=== PATIENT | female | born 1995 | race Two or more races ===

== ENCOUNTER 2018-07-29 21:18 | Emergency (ER) | payer SELFPAY ==
[~2018-07-29] VITALS: Ht 172.7 cm; Wt 142.4 kg
[~2018-07-29 21:18] MED LIST: DOXY100C2 PO; MONT10TA49 PO; NAPR-683 PO; PRED20TA PO
[2018-07-29 22:18] VITALS: BP 176/82
--- NOTE | 2018-07-29 23:29 | PHYS DOC ---
Past Medical History Past Medical History: Asthma Additional Past Medical Histor: seasonal allergies Past Surgical History: No Surgical History Alcohol Use: None Drug Use: None Adult General Chief Complaint Chief Complaint: TOE PROBLEM HPI HPI 23-year-old female presents to ER via POV for complaints of left small toe injury. She reports around 5 PM she stubbed her toe and since has had pain. She denies any other injury. She reports she put sports cream on her toe and an ice pack with minimal relief in symptoms. She denies any [id number] pain medications. Patient had steady unassisted gait from triage to room see per RN. Review of Systems Review of Systems Constitutional: Denies fever or chills [] Eyes: Denies change in visual acuity, redness, or eye pain [] HENT: Denies nasal congestion or sore throat [] Respiratory: Denies cough or shortness of breath [] Cardiovascular: No additional information not addressed in HPI [] GI: Denies abdominal pain, nausea, vomiting, bloody stools or diarrhea [] : Denies dysuria or hematuria [] Musculoskeletal: Denies back pain or joint pain [] Integument: Denies rash or skin lesions [] Neurologic: Denies headache, focal weakness or sensory changes [] Endocrine: Denies polyuria or polydipsia [] All other systems were reviewed and found to be within normal limits, except as documented in this note. Current Medications Current Medications Current Medications Medications (Trade) Dose Ordered Sig/[facility] Start Time Stop Time Status Last Admin Dose Admin Ibuprofen (Motrin) 600 mg 1X ONCE 07/29/18 23:45 07/29/18 23:46 DC Allergies Allergies Allergies Coded Allergies Type Severity Reaction Last Updated Verified No Known Drug Allergies 07/29/13 No Physical Exam Physical Exam Constitutional: Well developed, well nourished, no acute distress, non-toxic appearance. [] HENT: Normocephalic, atraumatic, bilateral external ears normal, oropharynx moist, no oral exudates, nose normal. [] Eyes: PERRLA, EOMI, conjunctiva normal, no discharge. [] Neck: Normal range of motion, no tenderness, supple, no stridor. [] Cardiovascular:Heart rate regular rhythm, no murmur [] Lungs & Thorax: Bilateral breath sounds clear to auscultation [] Abdomen: Bowel sounds normal, soft, no tenderness, no masses, no pulsatile masses. [] Skin: Warm, dry, no erythema, no rash. [] Back: No tenderness, no CVA tenderness. [] Extremities: No tenderness, no cyanosis, no clubbing, ROM intact, no edema. [] Neurologic: Alert and oriented X 3, normal motor function, normal sensory function, no focal deficits noted. [] Psychologic: Affect normal, judgement normal, mood normal. [] Current Patient Data Vital Signs Vital Signs Date Time Temp Pulse Resp B/P (MAP) Pulse Ox O2 Delivery O2 Flow Rate FiO2 07/29/18 22:18 98.8 89 16 176/82 (113) 97 Room Air 98.8 EKG EKG [] Radiology/Procedures Radiology/Procedures [] Course & Med Decision Making Course & Med Decision Making Pertinent Imaging studies reviewed. (See chart for details) 2355: Pt was evaluated in the ER for complaints of left small toe injury which occurred earlier today. Patient's x-ray was reviewed by Dr. Adams with nondisplaced proximal fifth phalanx fracture. This was discussed with patient along with plans for jayjay tape and Ortho shoe to be provided. Patient has been ambulatory without assistive devices. Patient advised on if symptoms persist she can follow up with orthopedics for reevaluation and further care. Patient remains PMS intact in left lower extremity. Education provided on signs and symptoms to return to ER. Discharge instructions were discussed. Dragon Disclaimer Dragon Disclaimer This electronic medical record was generated, in whole or in part, using a voice recognition dictation system. Departure Departure Impression: Primary Impression: Toe fracture, left Disposition: 01 HOME, SELF-CARE Condition: STABLE Referrals: NO PCP (PCP) LOU FERNANDEZ II, MD Patient Instructions: Jayjay Taping of Toes, Hard-Soled Shoe, Toe Fracture Additional Instructions: Tylenol and/or ibuprofen as needed for pain as directed on container. Ice pack to affected area every 3-4 hours for 20-30 minutes at a time. Elevate your foot as much as possible to improve swelling and pain. If symptoms persist follow-up with your primary care physician and or an orthopedic doctor for reevaluation and further care. JILLIAN ROMERO APRN Jul 29, 2018 23:29
[2018-07-29] MEDS ORDERED: IBUPROFEN 200 MG TABLET. PO ONE (23:45)
--- NOTE | 2018-07-30 05:26 | RAD ---
TOES LEFT 07/29/2018 11:22 PM INDICATION: Left small toe injury COMPARISON: None available. TECHNIQUE: 3 views of the fifth digit are provided of the left foot. FINDINGS: Minimally displaced fracture of the base of the proximal phalanx of the fifth digit without intra-articular extension. Bone mineralization is within normal limits. Joint spaces are maintained. Mild regional soft tissue swelling. There is no soft tissue gas or osseous erosion. IMPRESSION: Transversely oriented, minimally displaced fracture involving the base of the proximal phalanx of the fifth digit without intra-articular extension. Electronically signed by: Samantha Reyes MD (07/30/2018 5:23 AM) [facility]
== END 2018-07-30 00:34 | disposition home or self-care (01) ==
LOC: ER 21:18
DX: S92.512A Displaced fracture of proximal phalanx of left lesser toe(s), initial encounter for closed fracture (principal); J45.909 Unspecified asthma, uncomplicated; W22.09XA Striking against other stationary object, initial encounter; Y93.89 Activity, other specified; Y92.89 Other specified places as the place of occurrence of the external cause; Y99.8 Other external cause status
CPT/HCPCS: 73660; 99284

== ENCOUNTER 2020-02-11 14:57 | Emergency (ER) | payer BC ==
[~2020-02-11] VITALS: Ht 172.7 cm; Wt 145.4 kg
[2020-02-11] MEDS ORDERED: DEXAMETHASONE 4 MG TABLET PO STA (18:28)
[2020-02-11 18:30] VITALS: BP 145/78
[2020-02-11] MEDS ORDERED: AZIT250T PO (18:30)
--- NOTE | 2020-02-11 18:34 | PHYS DOC ---
Past Medical History Past Medical History: Asthma Additional Past Medical Histor: seasonal allergies Past Surgical History: No Surgical History Smoking Status: Never Smoker Alcohol Use: None Drug Use: None General Adult EDM: Chief Complaint: ASTHMA HPI: HPI: Patient is a 25 year old female who is currently on no prescription medications does have a history of asthma presents with a chief complaint headache muscle aches and shortness of breath. Symptoms have been ongoing x6 days. Patient states she has been exposed to someone who has tested positive for Covid. On exam patient is in no acute distress she is not hypoxic with oxygen saturations 99 to 100% on room air. Based upon history and present illness and physical exam concern for Covid patient is a PUI. Patient is not hypoxic--Covid test will be performed patient advised results 48 to 72 hours. We will give patient a dose of Decadron and patient will be prescribed Zithromax. Patient advised to take Tylenol and ibuprofen as needed for pain or fever. Patient advised to isolate for 10 days. Review of Systems: Review of Systems: Constitutional: Positive fever or chills. [] Eyes: Denies change in visual acuity. [] HENT: Denies nasal congestion or sore throat. [] Respiratory: Positive cough or shortness of breath. [] Cardiovascular: Denies chest pain or edema. [] GI: Denies abdominal pain, nausea, vomiting, bloody stools or diarrhea. [] : Denies dysuria. [] Musculoskeletal: Denies back pain or joint pain. [Positive myalgias] Integument: Denies rash. [] Neurologic: Denies, focal weakness or sensory changes. [Positive headache] Endocrine: Denies polyuria or polydipsia. [] Lymphatic: Denies swollen glands. [] Psychiatric: Denies depression or anxiety. [] Heart Score: Risk Factors: Risk Factors: DM, Current or recent (<one month) smoker, HTN, HLP, family hist ory of CAD, obesity. Risk Scores: Score 0 - 3: 2.5% MACE over next 6 weeks - Discharge Home Score 4 - 6: 20.3% MACE over next 6 weeks - Admit for Clinical Observation Score 7 - 10: 72.7% MACE over next 6 weeks - Early Invasive Strategies Current Medications: Current Medications Medications (Trade) Dose Ordered Sig/Jasbir Start Time Stop Time Status Last Admin Dose Admin Dexamethasone (Decadron) 10 mg 1X STAT 1/5/21 18:28 02/11/20 18:30 DC Allergies: Allergies: Allergies Coded Allergies Type Severity Reaction Last Updated Verified No Known Drug Allergies 07/29/13 No Physical Exam: PE: Constitutional: Well developed, well nourished, no acute distress, non-toxic appearance. [] HENT: Normocephalic, atraumatic, bilateral external ears normal, oropharynx moist, no oral exudates, nose normal. [] Eyes: PERRLA, EOMI, conjunctiva normal, no discharge. [] Neck: Normal range of motion, no tenderness, supple, no stridor. [] Cardiovascular:Heart rate regular rhythm, no murmur [] Lungs & Thorax: Bilateral breath sounds clear to auscultation [] Abdomen: Bowel sounds normal, soft, no tenderness, no masses, no pulsatile masses. [] Skin: Warm, dry, no erythema, no rash. [] Back: No tenderness, no CVA tenderness. [] Extremities: No tenderness, no cyanosis, no clubbing, ROM intact, no edema. [] Neurologic: Alert and oriented X 3, normal motor function, normal sensory function, no focal deficits noted. [] Psychologic: Affect normal, judgement normal, mood normal. [] Current Patient Data: Vital Signs: Vital Signs Date Time Temp Pulse Resp B/P (MAP) Pulse Ox O2 Delivery O2 Flow Rate FiO2 02/11/20 18:18 98.2 90 20 150/88 (108) 97 Room Air 98.2 EKG: EKG: [] Radiology/Procedures: Radiology/Procedures: [] Course & Med Decision Making: Course & Med Decision Making Pertinent Labs and Imaging studies reviewed. (See chart for details) [] Dragon Disclaimer: Dragon Disclaimer: This electronic medical record was generated, in whole or in part, using a voice recognition dictation system. Departure Departure Impression: Primary Impression: Person under investigation for COVID-19 Additional Impression: Asthma Disposition: 01 DC HOME SELF CARE/HOMELESS Condition: STABLE Patient Instructions: Asthma, Adult, Viral Syndrome Additional Instructions: You have been tested for or diagnosed with COVID-19. It is an infection caused by a new type of coronavirus. COVID-19 will cause cold-like or mild flu symptoms in most. It can cause more severe symptoms like problems breathing in some. There is no treatment for COVID-19. The body will clear the infection over time. Self-care will help to ease discomfort. Steps to Take: Self-Care Rest as needed. Healthy habits may help you feel better. Steps include: Choose healthy foods including fruits and vegetables. Drink water throughout the day. Get plenty of sleep each night. If you smoke, try to quit. It may ease breathing. Avoid alcohol. Keep Others Healthy The virus can spread to others. Droplets are released every time you sneeze or cough. The droplets can get into the mouth, nose, or eyes of people near you and lead to infection. To lower the chances of spreading COVID-19 to others: Stay at home until your doctor has said it is safe to leave. If you tested positive this will mean staying isolated until both of the following are true: At least 7 days have passed since the start of illness. You are free of fever for at least 72 hours without the use of medicine. During this time: - Avoid public areas, events, or transportation. Do not return to work or [facility] until your doctor has said it is safe to do so. - Call ahead if you need to go to a medical center. Let them know you may have COVID-19. It will help them guide you where to go. They may also ask you to wear a facemask when you come to the office. - If you call for emergency medical services, let them know you may have COVID- 19. While at home: - Try to avoid close contact with others. Stay about 6 feet away. - If possible, spend most of your time in a separate room from others. - Use a face mask if you will be in close contact with others such as sharing a room or vehicle. - Have someone wipe down common surfaces in the home. Use household pizza hut assistant every day on areas like doorknobs, counters, or sinks. - Cough or sneeze into a tissue. Throw the tissue away right after use. If a tissue is not available, cough or sneeze into your elbow. - Wash your hands often. Wash them after sneezing or coughing. Use soap and water and wash for at least 20 seconds. Alcohol based hand cleaner furniture can be used if soap and water is not available. - Do not prepare food for others. Avoid sharing personal items like forks, spoons, or toothbrushes. - Avoid close contact with pets while you are sick. There is no evidence of the virus passing to pets. This is a safety step until more is known about this virus. Isolation can be frustrating. Social interaction can help. Keep in touch with friends and family through phone and tech options. You can still interact with others in your home, just keep a safe distance of about 6 feet. Follow-up: Your doctors office will check in with you to see if there are any changes in your health. You may be asked to keep track of symptoms to share with them. They will also let you know when you are clear to be in public again. Problems to Look Out For: Contact your doctor if your recovery is not going as you expect. Get emergency care if you have problems such as: - Trouble breathing - Nonstop chest pain or pressure - Changes in awareness, confusion, or problems waking - Lips or face have bluish color - Worsening of symptoms If you think you have an emergency, call for emergency medical services right away. As taken from [facility] Script[facility] Azithromycin (ZITHROMAX) 250 Mg Tablet 1 PKG PO UD, #6 TAB Prov: HOLLY DURHAM I DO 02/11/20 HOLLY DURHAM I DO Feb 11, 2020 18:34
--- NOTE | 2020-02-13 16:24 | NUR ---
IP: Informed pt of negative COVID test. Pt verbalized understanding.
== END 2020-02-11 18:50 | disposition home or self-care (01) ==
LOC: ER 14:57
DX: J45.909 Unspecified asthma, uncomplicated (principal); Z20.828 Contact with and (suspected) exposure to other viral communicable diseases
CPT/HCPCS: 99283; C9803; U0003

== ENCOUNTER → 2020-09-21 | Emergency (ER) | payer BC ==
[~2020-09-21] VITALS: Ht 175.3 cm; Wt 136.0 kg
[~2020-09-21] MED LIST changes: +AZIT250T PO; +DEXAMETHASONE 4 MG TABLET PO ONE; -DOXY100C2 PO; +DOXY100C3 PO
--- NOTE | 2020-09-21 06:32 | PHYS DOC ---
Past Medical History Past Medical History: Asthma Additional Past Medical Histor: seasonal allergies Past Surgical History: No Surgical History Smoking Status: Never Smoker Alcohol Use: None Drug Use: None General Adult EDM: Chief Complaint: SORE THROAT Problems: (1) Sore throat HPI: HPI: 25-year-old female with no past medical history reported presents the emergency department complaining of sore throat intermittently for the past 2 weeks. She denies any swollen nodes, fever, throat swelling, inability to eat or drink, neck pain, change in voice, shortness of breath, chest pain, abdominal pain, further pain anywhere else. She had a Covid test recently and was negative, she has been fully vaccinated. Review of Systems: Review of Systems: Constitutional: Denies fever or chills. HENT: Denies congestion or sinus pain. Respiratory: Denies cough or shortness of breath. Cardiovascular: Denies chest pain or edema. GI: Denies abdominal pain, nausea. : Denies change in urination, dysuria. Musculoskeletal: Denies extremity pain, or trauma. Skin: Denies rash, skin change. Neurologic: Denies headache, focal weakness. Psychiatric: Denies depression or anxiety. All other systems reviewed as negative except for what was mentioned in the HPI. Heart Score: C/O Chest Pain: No Current Medications: Current Medications Medications (Trade) Dose Ordered Sig/Jas[facility] Start Time Stop Time Status Last Admin Dose Admin Dexamethasone (Decadron) 10 mg 1X ONCE 09/21/20 06:30 09/21/20 06:31 UNV Allergies: Allergies: Allergies Coded Allergies Type Severity Reaction Last Updated Verified diphenhydramine Allergy Intermediate rash/hives 02/11/20 Yes Physical Exam: PE: Constitutional: No acute distress, non-toxic appearance. HENT: Mild pharyngeal erythema without exudates, uvula midline, floor the mouth soft. No sinus tenderness Eyes: PERRLA, EOMI, conjunctiva normal, no discharge. Neck: Normal range of motion, supple, no stridor. Cardiovascular: 2+ radial pulses Lungs & Thorax: No respiratory distress, symmetrical expansion. Bilateral breath sounds clear to auscultation Skin: Warm, dry. Extremities: No tenderness, no cyanosis. Lymphadenopathy: No cervical lymphadenopathy, no tender nodes. Neurologic: Alert and oriented X 3, normal motor function, normal sensory function, no focal deficits noted. Non ataxic gait. GCS 15. Psychologic: Affect normal, judgment normal, mood normal. Current Patient Data: Vital Signs: Vital Signs Date Time Temp Pulse Resp B/P (MAP) Pulse Ox O2 Delivery O2 Flow Rate FiO2 09/21/20 06:10 98.2 81 20 158/96 (100) 100 Room Air 98.2 Course & Med Decision Making: Course & Med Decision Making Centor criteria of 1, no further testing is objectively indicated. Patient with benign exam, given Decadron for symptomatic relief. Patient has no evidence of acute end organ damage from hypertension. I counseled the patient on their high blood pressure and the need to follow-up in the clinic to get this addressed. Departure Departure Impression: Primary Impression: Pharyngitis Additional Impression: Elevated blood pressure reading Disposition: HOME / SELF CARE / HOMELESS Condition: GOOD Referrals: NO PCP (PCP) Patient Instructions: Viral Pharyngitis Additional Instructions: You were seen in the Emergency Department for pharyngitis. You may use [id number] sore throat spray or gargle with warm salt water to help your symptoms. This is most likely caused by a virus and you should improve in a few days. You may take Tylenol and/or ibuprofen for pain and/or fever. Return to the Emergency Department, day or night, if you experience worsening pain, shortness of breath, trouble swallowing, fever, vomiting, swelling in your neck, or for any other concerns. Follow up with your physician or clinic within the next 2-3 days if your symptoms are not improving. You need to follow up with the medicine clinic for a repeat check and further evaluation and treatment of your blood pressure, which was elevated in the e mergency department. It is important to have a primary doctor further investigate your blood pressure issues. You should return to the ED if you develop chest pain, shortness of breath, severe headache, or any other new or concerning symptoms. Losing some weight and improving your diet will be helpful in reducing your blood pressure as well. AWILDA GONZALEZ DO Sep 21, 2020 06:32
[2020-09-21 06:55] VITALS: BP 156/65
== END ==
LOC: ER 06:07
DX: J02.9 Acute pharyngitis, unspecified (principal); R03.0 Elevated blood-pressure reading, without diagnosis of hypertension; J45.909 Unspecified asthma, uncomplicated; Z88.5 Allergy status to narcotic agent
CPT/HCPCS: 99283

== ENCOUNTER 2020-12-02 15:02 | Emergency (ER) | payer SELFPAY ==
[~2020-12-02] VITALS: Ht 172.7 cm; Wt 136.0 kg
[~2020-12-02 15:02] MED LIST changes: -DEXAMETHASONE 4 MG TABLET PO ONE
[2020-12-02 15:22] VITALS: BP 154/76
[2020-12-02 15:28] LABS: BILIRUBIN,URINE NEGATIVE (NEG); CLARITY,URINE CLEAR; COLOR,URINE YELLOW; NITRITE,URINE NEGATIVE (NEG); PH,URINE 5.5 (<5.0-8.0); PROTEIN,URINE NEGATIVE (NEG-TRACE); UROBILINOGEN,URINE 0.2 mg/dL (0.2 mg/dL)
[2020-12-02 15:34] LABS: RBC,URINE 0 /HPF (0-2); WBC,URINE >40 /HPF (0-4)
[2020-12-02 15:35] LABS: BACTERIA,URINE FEW /HPF (0-FEW); TRICHOMONAS,URINE PRESENT; YEAST,URINE PRESENT /HPF
[2020-12-02] MEDS ORDERED: cefTRIAXone IM 1 GM VIAL IM ONE (15:45)
[2020-12-02] MEDS ORDERED: ONDANSETRON ODT 4 MG TAB.RAPDIS. PO ONE (15:45)
[2020-12-02] MEDS ORDERED: metroNIDAZOLE 500 MG TABLET PO ONE (15:45)
[2020-12-02] MEDS ORDERED: CEPH500C PO (16:09)
[2020-12-02] MEDS ORDERED: DOXY100C3 PO (16:09)
--- NOTE | 2020-12-02 16:10 | PHYS DOC ---
Past Medical History Past Medical History: Asthma Additional Past Medical Histor: seasonal allergies, vaginal cyst Past Surgical History: No Surgical History Smoking Status: Never Smoker Alcohol Use: Occasionally Drug Use: None General Adult EDM: Chief Complaint: PAIN ON URINATION HPI: HPI: Patient is a 25 year old female who presents with a week and a half of pain after urinating. She states that it is little bit better but then it comes back worse. She denies abdominal pain, nausea, vomiting, diarrhea, burning with urination, blood in her urine, fever, back pain, chest pain, shortness of air. She rates her discomfort at this time at a 4 out of 10. Review of Systems: Review of Systems: Constitutional: Denies fever or chills. [] Eyes: Denies change in visual acuity. [] HENT: Denies nasal congestion or sore throat. [] Respiratory: Denies cough or shortness of breath. [] Cardiovascular: Denies chest pain or edema. [] GI: + Low mid abdominal pain, denies nausea, vomiting, bloody stools or diarrhea. [] : + dysuria. [] Musculoskeletal: Denies back pain or joint pain. [] Integument: Denies rash. [] Neurologic: Denies headache, focal weakness or sensory changes. [] Endocrine: Denies polyuria or polydipsia. [] Lymphatic: Denies swollen glands. [] Psychiatric: Denies depression or anxiety. [] Heart Score: C/O Chest Pain: No Current Medications: Current Medications Medications (Trade) Dose Ordered Sig/[facility] Start Time Stop Time Status Last Admin Dose Admin Ceftriaxone Sodium (Rocephin Im) 1 gm 1X ONCE 12/02/20 15:45 12/02/20 15:47 DC Metronidazole (Flagyl) 2,000 mg 1X ONCE 12/02/20 15:45 12/02/20 15:47 DC Ondansetron HCl (Zofran Odt) 4 mg 1X ONCE 12/02/20 15:45 12/02/20 15:47 DC Allergies: Allergies: Allergies Coded Allergies Type Severity Reaction Last Updated Verified diphenhydramine Allergy Intermediate rash/hives 02/11/20 Yes Physical Exam: PE: Constitutional: Well developed, well nourished, no acute distress, non-toxic appearance. [] HENT: Normocephalic, atraumatic, bilateral external ears normal, oropharynx moist, no oral exudates, nose normal. [] Eyes: PERRLA, EOMI, conjunctiva normal, no discharge. [] Neck: Normal range of motion, no tenderness, supple, no stridor. [] Cardiovascular:Heart rate regular rhythm, no murmur [] Lungs & Thorax: Bilateral breath sounds clear to auscultation [] Abdomen: Bowel sounds normal, soft, no tenderness, no masses, no pulsatile masses. [] Skin: Warm, dry, no erythema, no rash. [] Back: No tenderness, no CVA tenderness. [] Extremities: No tenderness, no cyanosis, no clubbing, ROM intact, no edema. [] Neurologic: Alert and oriented X 3, normal motor function, normal sensory function, no focal deficits noted. [] Psychologic: Affect normal, judgement normal, mood normal. [] Normal physical exam Current Patient Data: Labs: Laboratory Tests Test 12/02/20 15:18 Urine Collection Type Unknown Urine Color Yellow Urine Clarity Clear Urine pH 5.5 (<5.0-8.0) Urine Specific [place] >=1.030 (1.000-1.030) Urine Protein Negative mg/dL (NEG-TRACE) Urine Glucose (UA) >=1000 mg/dL (NEG) Urine Ketones (Stick) Negative mg/dL (NEG) Urine Blood Small (NEG) Urine Nitrite Negative (NEG) Urine Bilirubin Negative (NEG) Urine Urobilinogen Dipstick 0.2 mg/dL (0.2 mg/dL) Urine Leukocyte Esterase Small (NEG) Urine RBC 0 /HPF (0-2) Urine WBC >40 /HPF (0-4) Urine Squamous Epithelial Cells Mod /LPF Urine Bacteria Few /HPF (0-FEW) Urine Mucus Slight /LPF Urine Trichomonas Present Urine Yeast Present /HPF POC Urine HCG, Qualitative Hcg negative (Negative) Vital Signs: Vital Signs Date Time Temp Pulse Resp B/P (MAP) Pulse Ox O2 Delivery O2 Flow Rate FiO2 12/02/20 15:22 98.5 96 20 154/76 (102) 98 Room Air 98.5 EKG: EKG: [] Radiology/Procedures: Radiology/Procedures: [] Course & Med Decision Making: Course & Med Decision Making Pertinent Labs and Imaging studies reviewed. (See chart for details) See HPI. Alert and oriented x4. Ambulatory steady gait. Speaks in full clear sentences. Abdomen soft and nontender. No CVA tenderness. Skin pink warm and dry. Vital signs within normal limits. Urinalysis shows infection, trichomonas and yeast. She is given 1 g Rocephin IM, 2 g metronidazole x1. She will be sent home on doxycycline and Keflex. [] Oksanaon Disclaimer: Dragon Disclaimer: This electronic medical record was generated, in whole or in part, using a voice recognition dictation system. Departure Departure Impression: Primary Impression: UTI (urinary tract infection) Qualified Codes: N30.01 - Acute cystitis with hematuria Additional Impressions: Trichomonosis Yeast cystitis Disposition: HOME / SELF CARE / HOMELESS Condition: STABLE Referrals: NO PCP (PCP) Patient Instructions: Trichomoniasis, Urinary Tract Infection Additional Instructions: Shoulder noFollow-up with primary care or a special effects makeup artist. Take medication as prescribed and with food. Do not have intercourse for 10 days after you have the medication. The chlamydia and gonorrhea will back in 24 to 48 hours and you will be called only if it is positive. Scripts Doxycycline Hyclate (DOXYCYCLINE HYCLATE) 100 Mg Capsule 1 CAP PO BID, #14 CAP Prov: MARY JANE LEIVA CONTRACT DESIGN AGENT 12/02/20 Cephalexin (KEFLEX) 500 Mg Capsule 1 CAP PO TID, #21 CAP Prov: MARY JANE LEIVA CONTRACT DESIGN AGENT 12/02/20 MARY JANE LEIVA CONTRACT DESIGN AGENT Dec 02, 2020 16:10
== END 2020-12-02 16:40 | disposition home or self-care (01) ==
LOC: ER 15:02
DX: N30.01 Acute cystitis with hematuria (principal); B37.41 Candidal cystitis and urethritis; A59.9 Trichomoniasis, unspecified; J45.909 Unspecified asthma, uncomplicated; Z88.5 Allergy status to narcotic agent
CPT/HCPCS: 81001; 81025; 87086; 87491; 87591; 96372; 99283; J0696; 87077; 87147; 87186